=== PATIENT | female | born 1965 | race Caucasian/White ===

== ENCOUNTER 2020-10-17 13:12 | Emergency (ER) | payer OTHER ==
[~2020-10-17] VITALS: Ht 152.4 cm; Wt 88.9 kg
--- NOTE | 2020-10-17 13:30 | NUR ---
The patient bibs for c/o chest pain/heavyness x 3 months, non radiating. Rates pain/heavyness 8/10. In room air and denies SOB. Respiration regular and unlabored. Attached to the monitor. Warm blanket provided for comfort. Will continue to monitor the patient.
--- NOTE | 2020-10-17 13:34 | NUR ---
STARTED RAC G 20, BLOOD SPECIMEN COLLECTED AND SENT TO THE LAB. THE LINE IS SALINE LOCKED.
[2020-10-17 13:40] LABS: BASOPHILS % (AUTO) 0.5 % (0.0-2.0); EOSINOPHILS % (AUTO) 1.7 % (0.0-6.0); HEMATOCRIT 36 % (33-45); HEMOGLOBIN 12.2 g/dL (11.5-14.8); LYMPHOCYTES # (AUTO) 2.8 K/uL (0.8-4.8); LYMPHOCYTES % (AUTO) 46.1 % (20.0-44.0); MEAN CORPUSCULAR HGB CONC 34 g/dl (31.0-36.0); MEAN CORPUSCULAR VOLUME 90 fL (82-100); MONOCYTES # (AUTO) 0.5 K/uL (0.1-1.30); MONOCYTES % (AUTO) 8.5 % (2.0-12.0); NEUTROPHILS # (AUTO) 2.6 K/uL (1.8-8.9); NEUTROPHILS % (AUTO) 43.2 % (43.0-81.0); PLATELET COUNT (AUTO) 251 K/uL (150-450)
[2020-10-17 13:56] LABS: CALCIUM, SERUM 8.5 mg/dL (8.5-10.1); CARBON DIOXIDE 27 mmol/L (21-32); CHLORIDE 107 mmol/L (98-107); GLUCOSE 102 mg/dL (74-106); SODIUM SERUM 143 mmol/L (136-145); UREA NITROGEN, BLOOD 14 mg/dL (7-18)
[2020-10-17] MEDS ORDERED: IOHEXOL-350 100 ML VIAL IV ONE (14:09)
[2020-10-17] MEDS ORDERED: IV NS 0.9% 250 ML IV ONE (14:09)
[2020-10-17] MEDS ORDERED: CT SWABBABLE VALVE TRANS SET 1 EA INFUS.SET MC ONE (14:09)
--- NOTE | 2020-10-17 14:18 | NUR ---
THE PATIENT IS TAKEN TO CT IN STABLE CONDITION.
--- NOTE | 2020-10-17 14:25 | NUR ---
THE PATIENT IS BACK FROM CT IN STABLE CONDITION.
[2020-10-17] MEDS ORDERED: CHOL100062 PO (14:57)
[2020-10-17] MEDS ORDERED: ZINC50TA69 PO (14:57)
[2020-10-17] MEDS ORDERED: ASPI-1169 PO (14:57)
[2020-10-17] MEDS ORDERED: ASCO-352 PO (14:57)
[2020-10-17] MEDS ORDERED: VITA1TAB56 PO (14:57)
[2020-10-17] MEDS ORDERED: METO25TA3 PO (14:57)
[2020-10-17] MEDS ORDERED: MAGN400T26 PO (14:57)
[2020-10-17] MEDS ORDERED: ATOR40TA PO (14:57)
--- NOTE | 2020-10-17 15:15 | NUR ---
COVID SWAB DONE AND SENT TO THE LAB.
[2020-10-17 15:39] VITALS: BP 141/88
--- NOTE | 2020-10-17 15:39 | NUR ---
Patient does not wish to proceed with medical care recommended by [facility]. Patient given information related to possible complications, up to and including , which could occur as a result of leaving the hospital at this time. Patient verbalizes understanding of risks involved due to leaving against medical advice. Patient has signed AMA form.
== END 2020-10-17 15:39 | disposition home or self-care (01) ==
LOC: ER 13:22
DX: R07.89 Other chest pain (principal); R94.31 Abnormal electrocardiogram [ECG] [EKG]
CPT/HCPCS: 36415; 71045; 71275; 80048; 84484; 85025; 87426; 93005 ×3; 99285; C9803; J7050; Q9967